=== PATIENT | male | born 1975 | race Two or more races ===

== ENCOUNTER 2020-09-17 02:17 | Emergency (ER) | payer OTHER ==
[~2020-09-17] VITALS: Ht 182.9 cm; Wt 95.3 kg
[2020-09-17 02:20] VITALS: BP 138/78
[2020-09-17] MEDS ORDERED: MAG HYDROX/AL HYDROX/SIMETH 30 ML UDC PO ONE (02:30)
[2020-09-17] MEDS ORDERED: LIDOCAINE VISCOUS 2% UD 15 ML UDC MM ONE (02:30)
[2020-09-17] MEDS ORDERED: LIDOCAINE VISCOUS 2% UD 15 ML UDC ONE (02:35)
[2020-09-17] MEDS ORDERED: MAG HYDROX/AL HYDROX/SIMETH 30 ML UDC ONE (02:36)
== END 2020-09-17 03:11 ==
LOC: ER 02:20
DX: K52.9 Noninfective gastroenteritis and colitis, unspecified (principal)